=== PATIENT | female | born 1995 | race Hispanic/Latino ===

== ENCOUNTER 2016-11-22 09:45 | Emergency (ER) | payer SELFPAY ==
[~2016-11-22] VITALS: Ht 162.6 cm; Wt 81.0 kg
[~2016-11-22 09:45] MED LIST: AMOXICILLIN/CL875 MG PO; AMOXICILLIN875 MG PO; AMOXIL400 MG/52 PO; AZITHROMYCIN250 MG PO; BENZONATATE200 MG PO; CIPROFLOXACN500 MG PO; DENIES CURRENT MEDS; FLONASE NASAL50 MCG; ONDANSETRON4 MG PO; PREDNISONE10 MG PO; PREDNISONE20 MG PO; TESSALON PER100 MG PO
[2016-11-22 10:56] LABS: URINE BILIRUBIN - DIPSTICK NEGATIVE (NEGATIVE); URINE BLOOD DIPSTICK NEGATIVE (NEGATIVE); URINE CLARITY CLEAR; URINE COLOR YELLOW; URINE GLUCOSE - DIPSTICK NEGATIVE (NEGATIVE); URINE KETONE NEGATIVE (NEGATIVE); URINE LEUK ESTERASE NEGATIVE (Negative); URINE NITRITE - DIPSTICK NEGATIVE (Negative); URINE PROTEIN - DIPSTICK NEGATIVE (NEG-TRACE); URINE UROBILINOGEN - DIPSTICK 0.2 E.U./dL (0.2)
[2016-11-22 12:30] VITALS: BP 129/74
[2016-11-22] MEDS ORDERED: PERCOCET 5/325M1 TAB PO (12:32)
== END 2016-11-22 12:30 | disposition home or self-care (01) | DRG 552 ==
LOC: ED 09:45
PROVIDERS: Emergency Medicine
DX: M54.5 Low back pain (principal); M79.604 Pain in right leg

== ENCOUNTER 2018-01-02 20:25 | Emergency (ER) | payer SELFPAY ==
[~2018-01-02] VITALS: Ht 162.6 cm; Wt 81.8 kg
[~2018-01-02 20:25] MED LIST changes: +PERCOCET 5/325M1 TAB PO
[2018-01-02 22:03] LABS: INFLUENZA A NONE DETECTED (NONE DETECT); INFLUENZA B NONE DETECTED (NONE DETECT)
[2018-01-02] MEDS ORDERED: AMOXICILLIN500 MG PO (22:28)
[2018-01-02 23:04] VITALS: BP 148/72
== END 2018-01-02 23:12 | disposition home or self-care (01) | DRG 153 ==
LOC: ED 20:25
PROVIDERS: Emergency Medicine
DX: J02.0 Streptococcal pharyngitis (principal)

== ENCOUNTER 2018-01-04 19:44 | Emergency (ER) | payer OTHER ==
[~2018-01-04] VITALS: Ht 162.6 cm; Wt 82.0 kg
[~2018-01-04 19:44] MED LIST changes: +AMOXICILLIN500 MG PO
[2018-01-04] MEDS ORDERED: ZOFRAN4 MG/TAB PO (20:10)
[2018-01-04 20:27] VITALS: BP 106/61
== END 2018-01-04 20:28 | disposition home or self-care (01) | DRG 153 ==
LOC: ED 19:44
DX: J02.0 Streptococcal pharyngitis (principal); R11.2 Nausea with vomiting, unspecified; R19.7 Diarrhea, unspecified

== ENCOUNTER 2018-04-16 09:10 | Emergency (ER) | payer OTHER ==
[~2018-04-16] VITALS: Ht 162.6 cm; Wt 60.0 kg
[~2018-04-16 09:10] MED LIST changes: +ZOFRAN4 MG/TAB PO
[2018-04-16] MEDS ORDERED: CORTISPORIN OTI10 ML AD (10:38)
[2018-04-16] MEDS ORDERED: AMOXICILLIN500 M2 PO (10:38)
[2018-04-16 10:45] VITALS: BP 110/68
== END 2018-04-16 10:45 | disposition home or self-care (01) | DRG 153 ==
LOC: ED 09:10
DX: H66.91 Otitis media, unspecified, right ear (principal); H60.91 Unspecified otitis externa, right ear; J02.9 Acute pharyngitis, unspecified

== ENCOUNTER 2018-07-01 10:11 | Emergency (ER) | payer OTHER ==
[~2018-07-01] VITALS: Ht 162.6 cm; Wt 84.0 kg
[~2018-07-01 10:11] MED LIST changes: +AMOXICILLIN500 M2 PO; +CORTISPORIN OTI10 ML AD
[2018-07-01 11:21] LABS: URINE BILIRUBIN - DIPSTICK NEGATIVE (NEGATIVE); URINE BLOOD DIPSTICK LARGE (NEGATIVE); URINE COLOR YELLOW; URINE GLUCOSE - DIPSTICK NEGATIVE (NEGATIVE); URINE KETONE NEGATIVE (NEGATIVE); URINE LEUK ESTERASE NEGATIVE (NEGATIVE); URINE NITRITE - DIPSTICK NEGATIVE (Negative); URINE PH 6.5 (4.5-8.0); URINE PROTEIN - DIPSTICK NEGATIVE (NEG-TRACE); URINE SPECIFIC GRAVITY 1.025; URINE UROBILINOGEN - DIPSTICK 0.2 E.U./dL (0.2)
[2018-07-01 11:26] LABS: URINE CLARITY HAZY
[2018-07-01 11:27] LABS: URINE RBC 25-50 RBC/hpf (0-5)
[2018-07-01] MEDS ORDERED: ULTRAM50 M1 PO (12:24)
[2018-07-01] MEDS ORDERED: FLEXERIL PO (12:24)
[2018-07-01 12:51] VITALS: BP 114/69
== END 2018-07-01 12:45 | disposition home or self-care (01) | DRG 552 ==
LOC: ED 10:11
PROVIDERS: Emergency Medicine
DX: S33.5XXA Sprain of ligaments of lumbar spine, initial encounter (principal); M51.27 Other intervertebral disc displacement, lumbosacral region; X50.3XXA Overexertion from repetitive movements, initial encounter; X50.0XXA Overexertion from strenuous movement or load, initial encounter; Y92.239 Unspecified place in hospital as the place of occurrence of the external cause

== ENCOUNTER 2022-04-06 16:07 | Emergency (ER) | payer OTHER ==
[~2022-04-06] VITALS: Ht 162.6 cm; Wt 90.0 kg
[~2022-04-06 16:07] MED LIST changes: +FLEXERIL PO; +ULTRAM50 M1 PO
[2022-04-06 16:15] VITALS: BP 114/71
[2022-04-06 17:00] LABS: URINE BILIRUBIN - DIPSTICK NEGATIVE (NEGATIVE); URINE BLOOD DIPSTICK NEGATIVE (NEGATIVE); URINE COLOR YELLOW; URINE GLUCOSE - DIPSTICK NEGATIVE (NEGATIVE); URINE KETONE NEGATIVE (NEGATIVE); URINE LEUK ESTERASE NEGATIVE (NEGATIVE); URINE PROTEIN - DIPSTICK NEGATIVE (NEG-TRACE); URINE SPECIFIC GRAVITY >=1.030; URINE UROBILINOGEN - DIPSTICK 0.2 E.U./dL (0.2)
[2022-04-06 17:01] LABS: URINE NITRITE - DIPSTICK NEGATIVE (Negative)
[2022-04-06] MEDS ORDERED: CYCLOBENZAPRINE10 MG PO (18:44)
[2022-04-06] MEDS ORDERED: NAPROXEN500 MG PO (18:44)
[2022-04-06 18:50] VITALS: BP 117/71
== END 2022-04-06 18:58 | disposition home or self-care (01) | DRG 552 ==
LOC: ED 16:07
PROVIDERS: Emergency Medicine
DX: S13.9XXA Sprain of joints and ligaments of unspecified parts of neck, initial encounter (principal); S33.5XXA Sprain of ligaments of lumbar spine, initial encounter; V43.52XA Car driver injured in collision with other type car in traffic accident, initial encounter

== ENCOUNTER 2022-07-29 21:22 | Emergency (ER) | payer SELFPAY ==
[~2022-07-29] VITALS: Ht 162.6 cm; Wt 86.0 kg
[~2022-07-29 21:22] MED LIST changes: +CYCLOBENZAPRINE10 MG PO; +NAPROXEN500 MG PO
[2022-07-29 21:31] VITALS: BP 121/69
[2022-07-29 21:46] VITALS: BP 140/114
[2022-07-29 21:48] VITALS: BP 106/62
[2022-07-29 22:13] LABS: HEMATOCRIT 33.6 % (37.0-47.0); HEMOGLOBIN 11.1 g/dl (12.0-16.0); IMMATURE GRANULOCYTES 0.3 % (0.0-5.0); MEAN CELL VOLUME 83.4 fL CALC (80.0-100.0); MEAN CORPUSCULAR HGB 27.5 pG CALC (26.0-32.0); NEUT# 9.9 thou/uL (2.00-7.15); RED BLOOD COUNT 4.03 mill/uL (4.20-5.60)
[2022-07-29] MEDS ORDERED: TESSALON PERLE100 MG PO (23:11)
[2022-07-29 23:13] VITALS: BP 106/62
== END 2022-07-29 23:20 | disposition home or self-care (01) | DRG 203 ==
LOC: ED 21:22
PROVIDERS: Family Medicine
DX: J20.9 Acute bronchitis, unspecified (principal)